=== PATIENT | female | born 1965 | race Caucasian/White ===

== ENCOUNTER → 2019-03-14 | Outpatient (CLI) | payer OTHER | END | disposition home or self-care (01) | LOC: LAB SHORT 14:05 → PLD 14:05 | DX: D18.09 Hemangioma of other sites (principal) | CPT/HCPCS: 88305 ==

== ENCOUNTER → 2021-05-07 | Outpatient (CLI) | payer OTHER | END | disposition home or self-care (01) | LOC: LAB SHORT 15:46 → LAB 15:46 | DX: D48.5 Neoplasm of uncertain behavior of skin (principal); C44.519 Basal cell carcinoma of skin of other part of trunk | CPT/HCPCS: 88304; 88305 ==

== ENCOUNTER → 2021-11-18 | Outpatient (CLI) | payer OTHER | END | disposition home or self-care (01) | LOC: LAB SHORT 11:14 | DX: D22.39 Melanocytic nevi of other parts of face (principal) | CPT/HCPCS: 88304; 88305 ==

== ENCOUNTER → 2022-03-30 | Outpatient (CLI) | payer OTHER | END | disposition home or self-care (01) | LOC: PLD 07:43 → LAB SHORT 07:43 → LAB 07:43 | DX: D22.5 Melanocytic nevi of trunk (principal); L57.0 Actinic keratosis | CPT/HCPCS: 88305 ==

== ENCOUNTER → 2022-04-19 | Outpatient (CLI) | payer OTHER | LOC: LAB SHORT 13:07 → PLD 13:07 | DX: D48.5 Neoplasm of uncertain behavior of skin (principal) | CPT/HCPCS: 88305 ==

== ENCOUNTER → 2023-02-24 | Outpatient (CLI) | payer OTHER | END | disposition home or self-care (01) | LOC: PLD 11:37 → LAB SHORT 11:37 | DX: C44.519 Basal cell carcinoma of skin of other part of trunk (principal) | CPT/HCPCS: 88305 ==

== ENCOUNTER 2023-06-21 07:32 | Day surgery (SDC) | payer OTHER ==
[~2023-06-21] VITALS: Ht 165.1 cm; Wt 63.3 kg
[2023-06-21 10:05] VITALS: BP 108/68
== END 2023-06-21 10:27 | disposition home or self-care (01) ==
LOC: ORSCSDS 07:32
PROVIDERS: Internal Medicine Gastroenterology
PROC: 0DBL8ZX Excision of Transverse Colon, Via Natural or Artificial Opening Endoscopic, Diagnostic (ICD-10-PCS; principal; 2023-06-21 08:45)
PROC: 0DBK8ZX Excision of Ascending Colon, Via Natural or Artificial Opening Endoscopic, Diagnostic (ICD-10-PCS; principal; 2023-06-21 08:45)
DX: Z12.11 Encounter for screening for malignant neoplasm of colon (principal); D12.2 Benign neoplasm of ascending colon; D12.3 Benign neoplasm of transverse colon; K64.8 Other hemorrhoids
CPT/HCPCS: 88305; A9270; J2704; J7120